=== PATIENT | male | born 1970 | race Hispanic/Latino ===

== ENCOUNTER → 2024-01-01 | Outpatient (CLI) | payer BC | END | disposition home or self-care (01) | LOC: RAD 10:17 | PROVIDERS: ATTEND Chiropractor | DX: M43.12 Spondylolisthesis, cervical region (principal); M47.814 Spondylosis without myelopathy or radiculopathy, thoracic region; M85.88 Other specified disorders of bone density and structure, other site; M47.812 Spondylosis without myelopathy or radiculopathy, cervical region | CPT/HCPCS: 72040; 72072 ==